=== PATIENT | male | born 1985 | race Caucasian/White ===

== ENCOUNTER 2018-08-25 14:48 | Inpatient (IN) | payer MEDICARE, MEDICAID ==
[~2018-08-25] VITALS: Ht 182.9 cm; Wt 185.9 kg
[~2018-08-25 14:48] MED LIST: AMLO5TAB4 PO; BENZ1TAB10 PO; DIVA500T52 PO; LITH300C3 PO; RISP3 PO
[2018-08-25] MEDS ORDERED: HALOPERIDOL 5 MG TABLET PO PRN (16:15)
[2018-08-25] MEDS ORDERED: ZOLPIDEM TARTRATE 10 MG TABLET PO PRN (16:15)
[2018-08-25] MEDS ORDERED: LORazepam 2 MG TABLET PO PRN (16:15)
[2018-08-25 16:34] VITALS: BP 149/99
[2018-08-25] MEDS ORDERED: PNEUMOCOCCAL VACCINE POLYVALENT 0.5 ML VIAL [PPSV23] IM ONE (19:00)
[2018-08-25] MEDS ORDERED: PETROLATUM,WHITE 28 GM JELLY TP PRN (21:30)
[2018-08-25] MEDS ORDERED: BENZOCAINE/MENTHOL LOZENGE MM PRN (21:30)
[2018-08-25] MEDS ORDERED: ONDANSETRON HCL 4 MG TABLET PO PRN (21:30)
[2018-08-25] MEDS ORDERED: ALBUTEROL SULFATE HFA 90 MCG/PUFF 8 GM INHALER IH PRN (21:30)
[2018-08-25] MEDS ORDERED: CloNIDine HCL 0.1 MG TABLET PO PRN (21:30)
[2018-08-25] MEDS ORDERED: BACITRACIN 28.4 GM OINTMENT TP PRN (21:30)
[2018-08-25] MEDS ORDERED: ACETAMINOPHEN 325 MG TABLET PO PRN (21:30)
[2018-08-25] MEDS ORDERED: LOPERAMIDE HCL 2 MG CAPSULE PO PRN (21:30)
[2018-08-25] MEDS ORDERED: MAG HYDROX/AL HYDROX/SIMETH ES 30 ML SUSPENSION UDCUP PO PRN (21:30)
[2018-08-25] MEDS ORDERED: IBUPROFEN 600 MG TABLET PO PRN (21:30)
[2018-08-25] MEDS ORDERED: MAGNESIUM HYDROXIDE SUSPENSION 30 ML UDCUP PO PRN (21:30)
[2018-08-26 06:14] VITALS: BP 131/86
[2018-08-26 08:07] VITALS: BP 144/96
[2018-08-26 08:26] LABS: BASOPHILS % (AUTO) 0.3 % (0.0-2.0); EOSINOPHILS % (AUTO) 1.9 % (1.0-6.0); HEMOGLOBIN 12.8 g/dL (13.5-17.5); LYMPHOCYTES # (AUTO) 2.2 K/uL (1.0-4.8); LYMPHOCYTES % (AUTO) 24.1 % (22.0-44.0); MEAN CORPUSCULAR HEMOGLOBIN 25.8 pg (26.0-34.0); MEAN CORPUSCULAR HGB CONC 32.1 G/dL (31.0-37.0); MEAN CORPUSCULAR VOLUME 80 fL (80-100); MONOCYTES # (AUTO) 0.5 K/uL (0.1-1.0); NEUTROPHILS % (AUTO) 67.7 % (40.0-70.0); PLATELET COUNT (AUTO) 389 K/uL (150-450); RED BLOOD CELL COUNT(AUTO) 4.97 MIL/uL (4.50-5.90); RED CELL DISTRIBUTION WIDTH 15.3 % (11.5-14.5)
[2018-08-26 08:43] LABS: HEMOGLOBIN A1C 7.4 % (4.5-6.2)
[2018-08-26] MEDS ORDERED: DOCUSATE SODIUM 100 MG CAPSULE PO SCH (09:00)
[2018-08-26] MEDS ORDERED: OMEPRAZOLE 20 MG CAPSULE PO SCH (09:00)
[2018-08-26 09:10] LABS: ALANINE AMINOTRANSFERASE 44 U/L (12-78); ALKALINE PHOSPHATASE 68 U/L (46-116); ANION GAP 7 mmol/L (8-16); ASPARTATE AMINOTRANSFERASE 31 U/L (15-37); BILIRUBIN,TOTAL 0.3 mg/dL (0.1-1.0); CALCIUM, TOTAL 8.6 mg/dL (8.8-10.5); CARBON DIOXIDE 28 mmol/L (22-29); CHLORIDE 101 mmol/L (98-107); CHOL/HDL RATIO 3.2 (4.2-7.3); CHOLESTEROL 146 mg/dL (131-200); CREATININE 0.71 mg/dL (0.60-1.30); FREE T4 (FREE THYROXINE) 1.03 ng/dL (0.76-1.46); GLOMERULAR FILTR. RATE CALC > 60 mL/min (>60); GLUCOSE,RANDOM 141 mg/dL (70-110); HDL CHOLESTEROL 45 mg/dL (40-60); LDL CHOL (CALC.) 87 mg/dL (0-130); POTASSIUM 4.8 mmol/L (3.5-5.1); SODIUM SERUM 136 mmol/L (136-145); THYROID STIMULATING HORMONE 1.09 uIU/mL (0.36-3.74); TOTAL PROTEIN, SERUM 7.2 g/dL (6.4-8.2); TRIGLYCERIDES 72 mg/dL (15-150); UREA NITROGEN, BLOOD 7 mg/dL (7-18)
[2018-08-26] MEDS: DIVALPROEX SODIUM 500 MG DR TABLET PO SCH ×2 (12:27→16:32)
[2018-08-26] MEDS ORDERED: PALIPERIDONE PALMITATE 234 MG/1.5 ML SYRINGE IM SCH (13:00)
[2018-08-26 16:31] VITALS: BP 140/80
[2018-08-26] MEDS: LITHIUM CARBONATE 300 MG CAPSULE PO SCH (16:32)
[2018-08-26] MEDS: QUEtiapine FUMARATE 200 MG TABLET PO SCH (16:32)
[2018-08-26] MEDS: BENZTROPINE MESYLATE 1 MG TABLET PO SCH (16:32)
[2018-08-26 17:09] LABS: GLUCOMETER DEV NAME(LOC) BV2X.; GLUCOSE,POINT OF CARE 116 MG/DL (70-110)
[2018-08-26] MEDS ORDERED: DOCUSATE SODIUM 100 MG CAPSULE PO PRN (21:00)
[2018-08-26] MEDS ORDERED: OMEPRAZOLE 20 MG CAPSULE PO PRN (21:00)
[2018-08-27 00:55] VITALS: BP 122/94
[2018-08-27 08:08] VITALS: BP 124/71
[2018-08-27] MEDS: QUEtiapine FUMARATE 200 MG TABLET PO SCH ×2 (08:31→09:00)
[2018-08-27] MEDS: DIVALPROEX SODIUM 500 MG DR TABLET PO SCH ×3 (08:31→12:03)
[2018-08-27] MEDS: BENZTROPINE MESYLATE 1 MG TABLET PO SCH ×2 (08:31→09:00)
[2018-08-27] MEDS: LITHIUM CARBONATE 300 MG CAPSULE PO SCH ×2 (08:31→09:00)
[2018-08-27 08:53] LABS: % IRON SATURATION 12.6 % (30-44)
[2018-08-27] MEDS ORDERED: QUET200T PO (12:28)
== END 2018-08-27 13:45 | disposition home or self-care (01) | DRG 885 ==
LOC: B2X 16:11
PROVIDERS: ADMIT Psychiatry & Neurology Psychiatry; ATTEND Psychiatry & Neurology Psychiatry
DX: F25.9 Schizoaffective disorder, unspecified (principal); G47.00 Insomnia, unspecified; K59.00 Constipation, unspecified; F41.9 Anxiety disorder, unspecified; F17.200 Nicotine dependence, unspecified, uncomplicated
CPT/HCPCS: 83036; 83540; 83550; 84439; 84443

== ENCOUNTER 2019-11-11 15:44 | Inpatient (IN) | payer MEDICARE, MEDICAID ==
[~2019-11-11] VITALS: Ht 180.3 cm; Wt 166.9 kg
[~2019-11-11 15:44] MED LIST changes: -AMLO5TAB4 PO; +DIVA-80 PO; -DIVA500T52 PO; +QUET200T PO; -RISP3 PO
[2019-11-11 22:57] VITALS: BP 142/103
[2019-11-12 00:13] VITALS: BP 133/84
[2019-11-12 08:16] LABS: BASOPHILS % (AUTO) 0.4 % (0.0-2.0); EOSINOPHILS % (AUTO) 0.4 % (1.0-6.0); HEMATOCRIT 42.6 % (41-53); HEMOGLOBIN 14.5 g/dL (13.5-17.5); LYMPHOCYTES # (AUTO) 2.5 K/uL (1.0-4.8); LYMPHOCYTES % (AUTO) 24.9 % (22.0-44.0); MEAN CORPUSCULAR HEMOGLOBIN 27.1 pg (26.0-34.0); MEAN CORPUSCULAR HGB CONC 34.1 G/dL (31.0-37.0); MEAN CORPUSCULAR VOLUME 79 fL (80-100); MONOCYTES # (AUTO) 0.8 K/uL (0.1-1.0); MONOCYTES % (AUTO) 8.3 % (2.0-9.0); NEUTROPHILS # (AUTO) 6.7 K/uL (1.8-7.7); PLATELET COUNT (AUTO) 414 K/uL (150-450); RED BLOOD CELL COUNT(AUTO) 5.37 MIL/uL (4.50-5.90); RED CELL DISTRIBUTION WIDTH 15.3 % (11.5-14.5)
[2019-11-12 08:31] LABS: APPEARANCE,URINE TURBID (CLEAR); GLUCOSE, URINE (UA) NEGATIVE (NEGATIVE); KETONES,URINE TRACE mg/dL (NEGATIVE); NITRATE,URINE POSITIVE (NEGATIVE); PROTEIN,URINE POS 1+ (NEGATIVE)
[2019-11-12 08:33] LABS: HEMOGLOBIN A1C 6.4 % (3.8-5.6)
[2019-11-12 08:37] LABS: AMPHET/METH SCREEN,URINE NEGATIVE (NEGATIVE); BARBITURATE SCREEN, URINE NEGATIVE (NEGATIVE); BENZODIAZEPINES SCREEN,URINE NEGATIVE (NEGATIVE); CANNABINOID SCREEN,URINE POSITIVE (NEGATIVE); COCAINE SCREEN,URINE NEGATIVE (NEGATIVE); METHADONE SCREEN, URINE NEGATIVE (NEGATIVE); OPIATE SCREEN,URINE NEGATIVE (NEGATIVE)
[2019-11-12 08:39] LABS: PHENCYCLIDINE SCREEN,URINE NEGATIVE (NEGATIVE)
[2019-11-12 08:44] LABS: ALANINE AMINOTRANSFERASE 91 U/L (12-78); ALBUMIN 4.1 g/dL (3.4-5.0); ALKALINE PHOSPHATASE 62 U/L (46-116); ANION GAP 14 mmol/L (8-16); ASPARTATE AMINOTRANSFERASE 61 U/L (15-37); BILIRUBIN,TOTAL 0.7 mg/dL (0.1-1.0); CALCIUM, TOTAL 8.7 mg/dL (8.8-10.5); CARBON DIOXIDE 25 mmol/L (22-29); CHLORIDE 99 mmol/L (98-107); CHOLESTEROL 147 mg/dL (131-200); CREATININE 0.86 mg/dL (0.60-1.30); FREE T4 (FREE THYROXINE) 1.31 ng/dL (0.76-1.46); GLOMERULAR FILTR. RATE CALC > 60 mL/min (>60); GLUCOSE,RANDOM 126 mg/dL (70-110); HDL CHOLESTEROL 37 mg/dL (40-60); LDL CHOL (CALC.) 92 mg/dL (0-130); SODIUM SERUM 138 mmol/L (136-145); THYROID STIMULATING HORMONE 0.65 uIU/mL (0.36-3.74); TOTAL PROTEIN, SERUM 7.9 g/dL (6.4-8.2); TRIGLYCERIDES 92 mg/dL (15-150); UREA NITROGEN, BLOOD 10 mg/dL (7-18)
[2019-11-12] MEDS ORDERED: ONDANSETRON HCL 4 MG TABLET PO PRN (08:45)
[2019-11-12] MEDS ORDERED: IBUPROFEN 600 MG TABLET PO PRN (08:45)
[2019-11-12] MEDS ORDERED: MAG HYDROX/AL HYDROX/SIMETH ES 30 ML SUSPENSION UDCUP PO PRN (08:45)
[2019-11-12] MEDS ORDERED: PETROLATUM,WHITE 28 GM JELLY TP PRN (08:45)
[2019-11-12] MEDS ORDERED: BACITRACIN 28 GM OINTMENT TP PRN (08:45)
[2019-11-12] MEDS ORDERED: DOCUSATE SODIUM 100 MG CAPSULE PO PRN (08:45)
[2019-11-12] MEDS ORDERED: CloNIDine HCL 0.1 MG TABLET PO PRN (08:45)
[2019-11-12] MEDS ORDERED: INSULIN LISPRO 100 UNITS/ML SQ PRN (08:45)
[2019-11-12] MEDS ORDERED: GLUCAGON,HUMAN RECOMBINANT 1 MG VIAL IM PRN (08:45)
[2019-11-12] MEDS ORDERED: ACETAMINOPHEN 325 MG TABLET PO PRN (08:45)
[2019-11-12] MEDS ORDERED: LOPERAMIDE HCL 2 MG CAPSULE PO PRN (08:45)
[2019-11-12] MEDS ORDERED: BENZOCAINE/MENTHOL LOZENGE PO PRN (08:45)
[2019-11-12] MEDS ORDERED: OMEPRAZOLE 20 MG CAPSULE PO PRN (08:45)
[2019-11-12] MEDS ORDERED: MAGNESIUM HYDROXIDE SUSPENSION 30 ML UDCUP PO PRN (08:45)
[2019-11-12] MEDS ORDERED: ALBUTEROL SULFATE HFA 90 MCG/PUFF 8 GM INHALER IH PRN (08:45)
[2019-11-12 09:00] VITALS: BP 160/97
[2019-11-12] MEDS: LORazepam 2 MG TABLET PO PRN ×3 (09:12→18:06)
[2019-11-12 10:29] LABS: AMORPHOUS SEDIMENT,UR Many /LPF (None Seen); BACTERIA,URINE None Seen /HPF (None Seen); BILIRUBIN,URINE PRELIM. POSITIVE (NEGATIVE); LEUKOCYTE ESTERASE ,URINE TRACE (NEGATIVE); OCCULT BLOOD,URINE TRACE (NEGATIVE); RBC,URINE 0-2 /HPF (0-2); WBC,URINE 0-2 /HPF (0-5)
[2019-11-12 11:00] VITALS: BP 130/87
[2019-11-12 13:52] LABS: GLUCOMETER DEV NAME(LOC) BV3N.; GLUCOSE,POINT OF CARE 110 MG/DL (70-110)
[2019-11-12] MEDS: HALOPERIDOL 5 MG TABLET PO PRN ×2 (14:06→18:06)
[2019-11-12 16:05] VITALS: BP 139/86
[2019-11-12 17:30] LABS: GLUCOMETER DEV NAME(LOC) BV3N.; GLUCOSE,POINT OF CARE 93 MG/DL (70-110)
[2019-11-12] MEDS: PALIPERIDONE 9 MG ER TABLET PO SCH (21:24)
[2019-11-13 06:47] LABS: GLUCOMETER DEV NAME(LOC) BV3N.; GLUCOSE,POINT OF CARE 131 MG/DL (70-110)
[2019-11-13] MEDS: LORazepam 2 MG TABLET PO PRN ×2 (07:42→17:31)
[2019-11-13] MEDS: HALOPERIDOL 5 MG TABLET PO PRN ×2 (07:42→17:31)
[2019-11-13 08:09] VITALS: BP 138/89
[2019-11-13 11:05] LABS: GLUCOMETER DEV NAME(LOC) BV3N.; GLUCOSE,POINT OF CARE 127 MG/DL (70-110)
[2019-11-13] MEDS ORDERED: LORazepam 2 MG/ML VIAL IM ONE (11:15)
[2019-11-13] MEDS ORDERED: HALOPERIDOL LACTATE 5 MG/ML VIAL IM ONE (11:15)
[2019-11-13] MEDS ORDERED: DiphenhydrAMINE HCL 50 MG/ML VIAL IM ONE (11:15)
[2019-11-13 16:18] VITALS: BP 132/81
[2019-11-13 17:48] LABS: GLUCOMETER DEV NAME(LOC) BV3N.; GLUCOSE,POINT OF CARE 130 MG/DL (70-110)
[2019-11-13] MEDS: ZOLPIDEM TARTRATE 10 MG TABLET PO PRN (20:24)
[2019-11-13] MEDS: PALIPERIDONE 9 MG ER TABLET PO SCH (20:24)
[2019-11-13 20:35] LABS: GLUCOMETER DEV NAME(LOC) BV3N.; GLUCOSE,POINT OF CARE 122 MG/DL (70-110)
[2019-11-14 02:56] VITALS: BP 134/78
[2019-11-14] MEDS: LORazepam 2 MG TABLET PO PRN ×3 (03:01→16:40)
[2019-11-14 06:17] LABS: GLUCOMETER DEV NAME(LOC) BV3N.; GLUCOSE,POINT OF CARE 112 MG/DL (70-110)
[2019-11-14] MEDS: HALOPERIDOL 5 MG TABLET PO PRN ×2 (06:19→16:40)
[2019-11-14 08:06] VITALS: BP 115/85
[2019-11-14 08:20] LABS: APPEARANCE,URINE TURBID (CLEAR); BILIRUBIN,URINE PRELIM. POSITIVE (NEGATIVE); GLUCOSE, URINE (UA) NEGATIVE (NEGATIVE); KETONES,URINE NEGATIVE (NEGATIVE); LEUKOCYTE ESTERASE ,URINE NEGATIVE (NEGATIVE); NITRATE,URINE NEGATIVE (NEGATIVE); OCCULT BLOOD,URINE NEGATIVE (NEGATIVE); PH,URINE 6.5 (5.0-8.0); PROTEIN,URINE TRACE (NEGATIVE)
[2019-11-14] MEDS ORDERED: LORazepam 2 MG/ML VIAL IM ONE (08:30)
[2019-11-14] MEDS ORDERED: HALOPERIDOL LACTATE 5 MG/ML VIAL IM ONE (08:30)
[2019-11-14] MEDS ORDERED: DiphenhydrAMINE HCL 50 MG/ML VIAL IM ONE (08:30)
[2019-11-14 08:45] LABS: BACTERIA,URINE None Seen /HPF (None Seen); RBC,URINE None Seen /HPF (0-2); SQUAMOUS EPITHELIAL CELL,UR Few /LPF (None Seen); WBC,URINE None Seen /HPF (0-5)
[2019-11-14 08:46] LABS: TRIPLE PHOSPHATE CRYSTAL,UR Few /LPF (None Seen)
[2019-11-14 11:05] LABS: GLUCOMETER DEV NAME(LOC) BV3N.; GLUCOSE,POINT OF CARE 125 MG/DL (70-110)
[2019-11-14 16:11] VITALS: BP 130/74
[2019-11-14 16:51] LABS: GLUCOMETER DEV NAME(LOC) BV3N.; GLUCOSE,POINT OF CARE 112 MG/DL (70-110)
[2019-11-14] MEDS: PALIPERIDONE 9 MG ER TABLET PO SCH (20:03)
[2019-11-15 01:20] VITALS: BP 128/80
[2019-11-15] MEDS: ZOLPIDEM TARTRATE 10 MG TABLET PO PRN ×2 (01:24→22:40)
[2019-11-15 05:49] LABS: GLUCOMETER DEV NAME(LOC) BV3N.; GLUCOSE,POINT OF CARE 108 MG/DL (70-110)
[2019-11-15] MEDS: HALOPERIDOL 5 MG TABLET PO PRN ×3 (07:31→15:33)
[2019-11-15] MEDS: LORazepam 2 MG TABLET PO PRN ×3 (07:31→15:33)
[2019-11-15 08:05] VITALS: BP 139/93
[2019-11-15 16:07] VITALS: BP 135/86
[2019-11-15 17:13] LABS: GLUCOMETER DEV NAME(LOC) BV3N.; GLUCOSE,POINT OF CARE 104 MG/DL (70-110)
[2019-11-15 17:13] LABS: GLUCOMETER DEV NAME(LOC) BV3N.; GLUCOSE,POINT OF CARE 113 MG/DL (70-110)
[2019-11-15] MEDS ORDERED: LORazepam 2 MG/ML VIAL ONE (18:18)
[2019-11-15] MEDS ORDERED: DiphenhydrAMINE HCL 50 MG/ML VIAL ONE (18:19)
[2019-11-15] MEDS ORDERED: HALOPERIDOL LACTATE 5 MG/ML VIAL ONE (18:19)
[2019-11-15] MEDS ORDERED: DiphenhydrAMINE HCL 50 MG/ML VIAL IM ONE (18:30)
[2019-11-15] MEDS ORDERED: LORazepam 2 MG/ML VIAL IM ONE (18:30)
[2019-11-15] MEDS ORDERED: HALOPERIDOL LACTATE 5 MG/ML VIAL IM ONE (18:30)
[2019-11-15] MEDS: PALIPERIDONE 9 MG ER TABLET PO SCH (20:04)
[2019-11-16 04:58] VITALS: BP 133/87
[2019-11-16] MEDS: LORazepam 2 MG TABLET PO PRN ×3 (05:46→22:50)
[2019-11-16] MEDS: HALOPERIDOL 5 MG TABLET PO PRN ×2 (05:46→22:50)
[2019-11-16 05:57] LABS: GLUCOMETER DEV NAME(LOC) BV3N.; GLUCOSE,POINT OF CARE 103 MG/DL (70-110)
[2019-11-16 08:12] VITALS: BP 136/84
[2019-11-16 11:48] LABS: GLUCOMETER DEV NAME(LOC) BV3N.; GLUCOSE,POINT OF CARE 104 MG/DL (70-110)
[2019-11-16 16:04] VITALS: BP 120/98
[2019-11-16] MEDS: MetFORMIN HCL 500 MG TABLET PO SCH (16:54)
[2019-11-16 17:01] LABS: GLUCOMETER DEV NAME(LOC) BV3N.; GLUCOSE,POINT OF CARE 110 MG/DL (70-110)
[2019-11-16 20:21] LABS: GLUCOMETER DEV NAME(LOC) BV3N.; GLUCOSE,POINT OF CARE 105 MG/DL (70-110)
[2019-11-16] MEDS: PALIPERIDONE 9 MG ER TABLET PO SCH (20:48)
[2019-11-16] MEDS: ZOLPIDEM TARTRATE 10 MG TABLET PO PRN (20:48)
[2019-11-17 00:09] VITALS: BP 141/89
[2019-11-17] MEDS: LORazepam 2 MG TABLET PO PRN ×2 (05:08→10:15)
[2019-11-17 06:03] LABS: GLUCOMETER DEV NAME(LOC) BV3N.; GLUCOSE,POINT OF CARE 125 MG/DL (70-110)
[2019-11-17] MEDS: MetFORMIN HCL 500 MG TABLET PO SCH ×2 (06:11→16:02)
[2019-11-17 08:14] VITALS: BP 133/79
[2019-11-17] MEDS: HALOPERIDOL 5 MG TABLET PO PRN ×2 (10:15→18:16)
[2019-11-17 11:13] LABS: GLUCOMETER DEV NAME(LOC) BV3N.; GLUCOSE,POINT OF CARE 110 MG/DL (70-110)
[2019-11-17 16:02] VITALS: BP 136/82
[2019-11-17] MEDS: DIVALPROEX SODIUM 500 MG DR TABLET PO SCH (16:02)
[2019-11-17] MEDS: LITHIUM CARBONATE 300 MG CAPSULE PO SCH (16:02)
[2019-11-17 16:24] LABS: GLUCOMETER DEV NAME(LOC) BV3N.; GLUCOSE,POINT OF CARE 115 MG/DL (70-110)
[2019-11-17] MEDS: PALIPERIDONE 9 MG ER TABLET PO SCH (20:12)
[2019-11-17 20:15] VITALS: BP 137/101
[2019-11-17 20:45] LABS: GLUCOMETER DEV NAME(LOC) BV3N.; GLUCOSE,POINT OF CARE 108 MG/DL (70-110)
[2019-11-17] MEDS: ZOLPIDEM TARTRATE 10 MG TABLET PO PRN (20:55)
[2019-11-18 00:58] VITALS: BP 136/80
[2019-11-18] MEDS: LORazepam 2 MG TABLET PO PRN ×2 (01:37→08:21)
[2019-11-18] MEDS: HALOPERIDOL 5 MG TABLET PO PRN (01:37)
[2019-11-18] MEDS: MetFORMIN HCL 500 MG TABLET PO SCH (06:11)
[2019-11-18 06:16] LABS: GLUCOMETER DEV NAME(LOC) BV3N.; GLUCOSE,POINT OF CARE 120 MG/DL (70-110)
[2019-11-18 08:06] VITALS: BP 138/80
[2019-11-18] MEDS: DIVALPROEX SODIUM 500 MG DR TABLET PO SCH (08:21)
[2019-11-18] MEDS: LITHIUM CARBONATE 300 MG CAPSULE PO SCH (08:21)
[2019-11-18] MEDS ORDERED: PALI9TAB15 PO (09:13)
[2019-11-18] MEDS ORDERED: METF-960 PO (09:14)
== END 2019-11-18 09:56 | disposition home or self-care (01) | DRG 885 ==
LOC: B3A 16:40
PROVIDERS: ADMIT Psychiatry & Neurology Psychiatry; ATTEND Psychiatry & Neurology Psychiatry
DX: F20.0 Paranoid schizophrenia (principal); Z68.43 Body mass index [BMI] 50.0-59.9, adult; K59.00 Constipation, unspecified; E11.9 Type 2 diabetes mellitus without complications; E66.9 Obesity, unspecified; F41.9 Anxiety disorder, unspecified; G47.00 Insomnia, unspecified; I10 Essential (primary) hypertension
CPT/HCPCS: 80307; 83036; 84439; 84443; J1200; J1630; J2060

== ENCOUNTER 2019-11-11 18:25 | Emergency (ER) | payer MEDICARE, OTHER ==
[~2019-11-11] VITALS: Ht 180.3 cm; Wt 154.6 kg
[2019-11-11 18:53] LABS: COVID AG,FIA SOURCE NASAL SWAB
[2019-11-11 22:14] VITALS: BP 155/83
== END 2019-11-11 22:15 | disposition home or self-care (01) ==
LOC: EMS 18:26
DX: F20.9 Schizophrenia, unspecified (principal); Z20.828 Contact with and (suspected) exposure to other viral communicable diseases
CPT/HCPCS: 87426

== ENCOUNTER 2019-11-29 02:12 | Inpatient (IN) | payer MEDICARE, MEDICAID ==
[~2019-11-29] VITALS: Ht 180.3 cm; Wt 165.6 kg
[~2019-11-29 02:12] MED LIST changes: -BENZ1TAB10 PO; +METF-960 PO; +PALI9TAB15 PO; -QUET200T PO
[2019-11-29] MEDS ORDERED: PALI39DI IM (02:36)
[2019-11-29 03:26] LABS: ANION GAP 8 mmol/L (8-16); CALCIUM, TOTAL 8.2 mg/dL (8.8-10.5); CARBON DIOXIDE 26 mmol/L (22-29); CHLORIDE 101 mmol/L (98-107); CREATININE 0.77 mg/dL (0.60-1.30); GLOMERULAR FILTR. RATE CALC > 60 mL/min (>60); GLUCOSE,RANDOM 159 mg/dL (70-110); POTASSIUM 4.2 mmol/L (3.5-5.1); SODIUM SERUM 135 mmol/L (136-145); UREA NITROGEN, BLOOD 5 mg/dL (7-18)
[2019-11-29 03:33] LABS: ALANINE AMINOTRANSFERASE 39 U/L (12-78); ALBUMIN 2.9 g/dL (3.4-5.0); ALKALINE PHOSPHATASE 58 U/L (46-116); ASPARTATE AMINOTRANSFERASE 22 U/L (15-37); BILIRUBIN,TOTAL 0.3 mg/dL (0.1-1.0)
[2019-11-29] MEDS ORDERED: LORazepam 2 MG/ML VIAL ONE (03:38)
[2019-11-29] MEDS ORDERED: HALOPERIDOL LACTATE 5 MG/ML VIAL ONE (03:38)
[2019-11-29] MEDS ORDERED: DiphenhydrAMINE HCL 50 MG/ML VIAL ONE (03:38)
[2019-11-29] MEDS ORDERED: LORazepam 2 MG/ML VIAL IM ONE (04:00)
[2019-11-29] MEDS ORDERED: DiphenhydrAMINE HCL 50 MG/ML VIAL IM ONE (04:00)
[2019-11-29] MEDS ORDERED: HALOPERIDOL LACTATE 5 MG/ML VIAL IM ONE (04:00)
[2019-11-29 04:31] LABS: AMPHET/METH SCREEN,URINE NEGATIVE (NEGATIVE); BARBITURATE SCREEN, URINE NEGATIVE (NEGATIVE); BENZODIAZEPINES SCREEN,URINE NEGATIVE (NEGATIVE); CANNABINOID SCREEN,URINE POSITIVE (NEGATIVE); COCAINE SCREEN,URINE NEGATIVE (NEGATIVE); METHADONE SCREEN, URINE NEGATIVE (NEGATIVE); OPIATE SCREEN,URINE NEGATIVE (NEGATIVE); PHENCYCLIDINE SCREEN,URINE NEGATIVE (NEGATIVE)
[2019-11-29 05:04] LABS: BASOPHILS % (AUTO) 0.3 % (0.0-2.0); EOSINOPHILS % (AUTO) 0.8 % (1.0-6.0); HEMATOCRIT 37.3 % (41-53); HEMOGLOBIN 12.5 g/dL (13.5-17.5); LYMPHOCYTES % (AUTO) 12.1 % (22.0-44.0); MEAN CORPUSCULAR HEMOGLOBIN 26.9 pg (26.0-34.0); MEAN CORPUSCULAR HGB CONC 33.5 G/dL (31.0-37.0); MEAN CORPUSCULAR VOLUME 80 fL (80-100); MONOCYTES # (AUTO) 1.5 K/uL (0.1-1.0); MONOCYTES % (AUTO) 9.5 % (2.0-9.0); NEUTROPHILS # (AUTO) 12.6 K/uL (1.8-7.7); NEUTROPHILS % (AUTO) 77.3 % (40.0-70.0); PLATELET COUNT (AUTO) 394 K/uL (150-450); RED BLOOD CELL COUNT(AUTO) 4.65 MIL/uL (4.50-5.90); RED CELL DISTRIBUTION WIDTH 15.3 % (11.5-14.5)
[2019-11-29 05:08] LABS: COVID AG,FIA SOURCE NASOPHARYNGEAL
[2019-11-29 06:20] LABS: APPEARANCE,URINE CLEAR (CLEAR); BILIRUBIN,URINE NEGATIVE (NEGATIVE); GLUCOSE, URINE (UA) NEGATIVE (NEGATIVE); KETONES,URINE NEGATIVE (NEGATIVE); LEUKOCYTE ESTERASE ,URINE NEGATIVE (NEGATIVE); NITRATE,URINE NEGATIVE (NEGATIVE); OCCULT BLOOD,URINE NEGATIVE (NEGATIVE); PROTEIN,URINE NEGATIVE (NEGATIVE); UROBILINOGEN,URINE 0.2 mg/dL (<=1.0)
[2019-11-29 10:01] VITALS: BP 141/89
[2019-11-29 10:14] LABS: GLUCOMETER DEV NAME(LOC) BV3N.; GLUCOSE,POINT OF CARE 137 MG/DL (70-110)
[2019-11-29 16:22] VITALS: BP 136/74
[2019-11-30] MEDS: HALOPERIDOL 5 MG TABLET PO PRN ×3 (05:11→18:29)
[2019-11-30] MEDS: LORazepam 2 MG TABLET PO PRN ×3 (05:11→18:29)
[2019-11-30 05:14] VITALS: BP 118/76
[2019-11-30 08:06] LABS: CHOL/HDL RATIO 3.2 (4.2-7.3)
[2019-11-30 16:05] VITALS: BP 123/75
[2019-11-30] MEDS: ZOLPIDEM TARTRATE 10 MG TABLET PO PRN (22:08)
[2019-12-01 02:23] VITALS: BP 132/82
[2019-12-01] MEDS: LORazepam 2 MG TABLET PO PRN ×4 (02:24→23:57)
[2019-12-01] MEDS: HALOPERIDOL 5 MG TABLET PO PRN ×3 (03:16→19:52)
[2019-12-01] MEDS: DIVALPROEX SODIUM 500 MG DR TABLET PO SCH ×2 (08:17→16:09)
[2019-12-01] MEDS: LITHIUM CARBONATE 300 MG CAPSULE PO SCH ×2 (08:17→16:09)
[2019-12-01 08:34] VITALS: BP 145/78
[2019-12-01 09:20] LABS: BASOPHILS % (AUTO) 0.9 % (0.0-2.0); EOSINOPHILS % (AUTO) 2.4 % (1.0-6.0); HEMATOCRIT 44.1 % (41-53); LYMPHOCYTES # (AUTO) 2.1 K/uL (1.0-4.8); MEAN CORPUSCULAR HEMOGLOBIN 31.9 pg (26.0-34.0); MEAN CORPUSCULAR VOLUME 94 fL (80-100); MONOCYTES # (AUTO) 0.5 K/uL (0.1-1.0); MONOCYTES % (AUTO) 9.5 % (2.0-9.0); NEUTROPHILS # (AUTO) 2.1 K/uL (1.8-7.7); NEUTROPHILS % (AUTO) 44.2 % (40.0-70.0); PLATELET COUNT (AUTO) 269 K/uL (150-450); RED BLOOD CELL COUNT(AUTO) 4.69 MIL/uL (4.50-5.90); RED CELL DISTRIBUTION WIDTH 13.7 % (11.5-14.5)
[2019-12-01 09:42] LABS: ALANINE AMINOTRANSFERASE 97 U/L (12-78); ALBUMIN 3.8 g/dL (3.4-5.0); ALKALINE PHOSPHATASE 105 U/L (46-116); ANION GAP 9 mmol/L (8-16); ASPARTATE AMINOTRANSFERASE 31 U/L (15-37); BILIRUBIN,TOTAL 0.4 mg/dL (0.1-1.0); CALCIUM, TOTAL 9.8 mg/dL (8.8-10.5); CARBON DIOXIDE 30 mmol/L (22-29); CHLORIDE 102 mmol/L (98-107); CREATININE 0.91 mg/dL (0.60-1.30); GLOMERULAR FILTR. RATE CALC > 60 mL/min (>60); GLUCOSE,RANDOM 96 mg/dL (70-110); PHOSPHORUS 3.9 mg/dL (2.5-4.9); POTASSIUM 4.1 mmol/L (3.5-5.1); SODIUM SERUM 141 mmol/L (136-145); TOTAL PROTEIN, SERUM 7.7 g/dL (6.4-8.2); UREA NITROGEN, BLOOD 15 mg/dL (7-18)
[2019-12-01] MEDS ORDERED: GuaiFENesin SR 600 MG ER TABLET PO PRN (10:30)
[2019-12-01 11:05] LABS: GLUCOMETER DEV NAME(LOC) BV3N.; GLUCOSE,POINT OF CARE 119 MG/DL (70-110)
[2019-12-01] MEDS: MetFORMIN HCL 500 MG TABLET PO SCH (16:09)
[2019-12-01 16:52] VITALS: BP 138/89
[2019-12-02 00:07] VITALS: BP 136/79
[2019-12-02 06:25] LABS: GLUCOMETER DEV NAME(LOC) BV3N.; GLUCOSE,POINT OF CARE 125 MG/DL (70-110)
[2019-12-02] MEDS: MetFORMIN HCL 500 MG TABLET PO SCH ×2 (07:04→16:36)
[2019-12-02] MEDS: HALOPERIDOL 5 MG TABLET PO PRN ×3 (07:39→16:36)
[2019-12-02 08:22] VITALS: BP 140/106
[2019-12-02] MEDS: LITHIUM CARBONATE 300 MG CAPSULE PO SCH ×2 (08:26→16:36)
[2019-12-02] MEDS: DIVALPROEX SODIUM 500 MG DR TABLET PO SCH ×2 (08:26→16:37)
[2019-12-02 16:06] VITALS: BP 136/88
[2019-12-02] MEDS: LORazepam 2 MG TABLET PO PRN (16:37)
[2019-12-02 16:48] LABS: GLUCOMETER DEV NAME(LOC) BV3N.; GLUCOSE,POINT OF CARE 112 MG/DL (70-110)
[2019-12-03 02:03] VITALS: BP 124/74
[2019-12-03 05:52] LABS: GLUCOMETER DEV NAME(LOC) BV3N.; GLUCOSE,POINT OF CARE 110 MG/DL (70-110)
[2019-12-03] MEDS: MetFORMIN HCL 500 MG TABLET PO SCH ×2 (06:28→16:33)
[2019-12-03 08:14] VITALS: BP 157/88
[2019-12-03] MEDS: HALOPERIDOL 5 MG TABLET PO PRN (08:15)
[2019-12-03] MEDS: LORazepam 2 MG TABLET PO PRN (08:15)
[2019-12-03] MEDS: LITHIUM CARBONATE 300 MG CAPSULE PO SCH ×2 (08:15→16:34)
[2019-12-03] MEDS: DIVALPROEX SODIUM 500 MG DR TABLET PO SCH ×2 (08:15→16:33)
[2019-12-03 16:06] VITALS: BP 129/68
[2019-12-03 16:38] LABS: GLUCOMETER DEV NAME(LOC) BV3N.; GLUCOSE,POINT OF CARE 115 MG/DL (70-110)
[2019-12-04 00:56] VITALS: BP 110/61
[2019-12-04 06:00] LABS: GLUCOMETER DEV NAME(LOC) BV3N.; GLUCOSE,POINT OF CARE 113 MG/DL (70-110)
[2019-12-04] MEDS: MetFORMIN HCL 500 MG TABLET PO SCH ×2 (06:14→16:39)
[2019-12-04 08:22] VITALS: BP 118/72
[2019-12-04] MEDS: HALOPERIDOL 5 MG TABLET PO PRN ×2 (08:31→16:39)
[2019-12-04] MEDS: LITHIUM CARBONATE 300 MG CAPSULE PO SCH ×2 (08:31→16:39)
[2019-12-04] MEDS: LORazepam 2 MG TABLET PO PRN ×2 (08:31→16:39)
[2019-12-04] MEDS: DIVALPROEX SODIUM 500 MG DR TABLET PO SCH ×2 (08:31→16:39)
[2019-12-04 16:11] VITALS: BP 117/78
[2019-12-04 16:50] LABS: GLUCOMETER DEV NAME(LOC) BV3N.; GLUCOSE,POINT OF CARE 102 MG/DL (70-110)
[2019-12-05] MEDS: ZOLPIDEM TARTRATE 10 MG TABLET PO PRN (02:12)
[2019-12-05] MEDS: LORazepam 2 MG TABLET PO PRN ×2 (02:12→16:18)
[2019-12-05 05:41] VITALS: BP 114/72
[2019-12-05 06:19] LABS: GLUCOMETER DEV NAME(LOC) BV3N.; GLUCOSE,POINT OF CARE 147 MG/DL (70-110)
[2019-12-05] MEDS: MetFORMIN HCL 500 MG TABLET PO SCH ×2 (06:41→16:18)
[2019-12-05 08:10] VITALS: BP 121/66
[2019-12-05] MEDS: LITHIUM CARBONATE 300 MG CAPSULE PO SCH ×2 (08:55→16:18)
[2019-12-05] MEDS: DIVALPROEX SODIUM 500 MG DR TABLET PO SCH ×2 (08:55→16:18)
[2019-12-05] MEDS: MULTIVITAMINS WITH MINERALS, THERAPEUTIC TABLET PO SCH (09:58)
[2019-12-05 16:06] VITALS: BP 116/69
[2019-12-05 16:46] LABS: GLUCOMETER DEV NAME(LOC) BV3N.; GLUCOSE,POINT OF CARE 103 MG/DL (70-110)
[2019-12-06 05:21] VITALS: BP 113/72
[2019-12-06 06:23] LABS: GLUCOMETER DEV NAME(LOC) BV3N.; GLUCOSE,POINT OF CARE 121 MG/DL (70-110)
[2019-12-06] MEDS: MetFORMIN HCL 500 MG TABLET PO SCH ×2 (06:49→16:11)
[2019-12-06] MEDS: LORazepam 2 MG TABLET PO PRN ×2 (07:02→16:11)
[2019-12-06] MEDS: HALOPERIDOL 5 MG TABLET PO PRN ×2 (07:02→16:11)
[2019-12-06 08:26] VITALS: BP 139/87
[2019-12-06] MEDS: MULTIVITAMINS WITH MINERALS, THERAPEUTIC TABLET PO SCH (09:53)
[2019-12-06] MEDS: LITHIUM CARBONATE 300 MG CAPSULE PO SCH ×2 (09:53→16:11)
[2019-12-06] MEDS: DIVALPROEX SODIUM 500 MG DR TABLET PO SCH ×2 (09:54→16:11)
[2019-12-06 16:11] VITALS: BP 130/68
[2019-12-06 16:33] LABS: GLUCOMETER DEV NAME(LOC) BV3N.; GLUCOSE,POINT OF CARE 90 MG/DL (70-110)
[2019-12-07 05:17] VITALS: BP 126/74
[2019-12-07 06:12] LABS: GLUCOMETER DEV NAME(LOC) BV3N.; GLUCOSE,POINT OF CARE 116 MG/DL (70-110)
[2019-12-07] MEDS: HALOPERIDOL 5 MG TABLET PO PRN ×4 (06:43→20:32)
[2019-12-07] MEDS: LORazepam 2 MG TABLET PO PRN ×4 (06:43→20:32)
[2019-12-07] MEDS: MetFORMIN HCL 500 MG TABLET PO SCH ×2 (06:43→16:31)
[2019-12-07 08:03] VITALS: BP 113/67
[2019-12-07] MEDS: DIVALPROEX SODIUM 500 MG DR TABLET PO SCH ×2 (08:29→16:31)
[2019-12-07] MEDS: LITHIUM CARBONATE 300 MG CAPSULE PO SCH ×2 (08:29→16:31)
[2019-12-07] MEDS: MULTIVITAMINS WITH MINERALS, THERAPEUTIC TABLET PO SCH (08:29)
[2019-12-07 16:04] VITALS: BP 129/73
[2019-12-07 18:34] LABS: GLUCOMETER DEV NAME(LOC) BV3N.; GLUCOSE,POINT OF CARE 122 MG/DL (70-110)
[2019-12-07] MEDS: ZOLPIDEM TARTRATE 10 MG TABLET PO PRN (20:24)
[2019-12-07] MEDS ORDERED: INSULIN LISPRO 100 UNITS/ML SQ PRN (23:00)
[2019-12-07] MEDS ORDERED: GLUCAGON,HUMAN RECOMBINANT 1 MG VIAL IM PRN (23:00)
[2019-12-08 04:10] VITALS: BP 111/77
[2019-12-08] MEDS: HALOPERIDOL 5 MG TABLET PO PRN ×4 (04:17→20:24)
[2019-12-08] MEDS: LORazepam 2 MG TABLET PO PRN ×4 (04:18→20:24)
[2019-12-08 04:39] VITALS: BP 132/71
[2019-12-08 06:11] LABS: GLUCOMETER DEV NAME(LOC) BV3N.; GLUCOSE,POINT OF CARE 156 MG/DL (70-110)
[2019-12-08] MEDS: MetFORMIN HCL 500 MG TABLET PO SCH ×2 (06:34→16:22)
[2019-12-08 08:21] VITALS: BP 159/86
[2019-12-08] MEDS: MULTIVITAMINS WITH MINERALS, THERAPEUTIC TABLET PO SCH (08:26)
[2019-12-08] MEDS: LITHIUM CARBONATE 300 MG CAPSULE PO SCH ×2 (08:26→16:22)
[2019-12-08] MEDS: DIVALPROEX SODIUM 500 MG DR TABLET PO SCH ×2 (08:26→16:22)
[2019-12-08 11:51] LABS: GLUCOMETER DEV NAME(LOC) BV3N.; GLUCOSE,POINT OF CARE 98 MG/DL (70-110)
[2019-12-08 16:35] VITALS: BP 128/82
[2019-12-08 16:36] LABS: GLUCOMETER DEV NAME(LOC) BV3N.; GLUCOSE,POINT OF CARE 88 MG/DL (70-110)
[2019-12-08] MEDS: ZOLPIDEM TARTRATE 10 MG TABLET PO PRN (20:24)
[2019-12-08 20:42] LABS: GLUCOMETER DEV NAME(LOC) BV3N.; GLUCOSE,POINT OF CARE 95 MG/DL (70-110)
[2019-12-09 03:27] VITALS: BP 126/74
[2019-12-09 05:34] LABS: GLUCOMETER DEV NAME(LOC) BV3N.; GLUCOSE,POINT OF CARE 90 MG/DL (70-110)
[2019-12-09] MEDS: MetFORMIN HCL 500 MG TABLET PO SCH ×2 (06:44→16:47)
[2019-12-09 08:05] VITALS: BP 134/80
[2019-12-09] MEDS: DIVALPROEX SODIUM 500 MG DR TABLET PO SCH ×2 (08:21→16:46)
[2019-12-09] MEDS: MULTIVITAMINS WITH MINERALS, THERAPEUTIC TABLET PO SCH (08:21)
[2019-12-09] MEDS: LITHIUM CARBONATE 300 MG CAPSULE PO SCH ×2 (08:21→16:47)
[2019-12-09] MEDS: HALOPERIDOL 5 MG TABLET PO PRN ×3 (08:28→20:55)
[2019-12-09] MEDS: LORazepam 2 MG TABLET PO PRN ×3 (08:28→20:54)
[2019-12-09 14:25] LABS: GLUCOMETER DEV NAME(LOC) BV3N.; GLUCOSE,POINT OF CARE 109 MG/DL (70-110)
[2019-12-09 16:32] VITALS: BP 129/78
[2019-12-09 17:09] LABS: GLUCOMETER DEV NAME(LOC) BV3N.; GLUCOSE,POINT OF CARE 119 MG/DL (70-110)
[2019-12-09] MEDS: ZOLPIDEM TARTRATE 10 MG TABLET PO PRN (20:54)
[2019-12-09 20:57] LABS: GLUCOMETER DEV NAME(LOC) BV3N.; GLUCOSE,POINT OF CARE 87 MG/DL (70-110)
[2019-12-10] MEDS: LORazepam 2 MG TABLET PO PRN ×4 (01:15→20:38)
[2019-12-10 01:58] VITALS: BP 128/82
[2019-12-10 06:16] LABS: GLUCOMETER DEV NAME(LOC) BV3N.; GLUCOSE,POINT OF CARE 93 MG/DL (70-110)
[2019-12-10] MEDS: MetFORMIN HCL 500 MG TABLET PO SCH ×2 (06:23→16:36)
[2019-12-10 08:07] VITALS: BP 146/90
[2019-12-10] MEDS: DIVALPROEX SODIUM 500 MG DR TABLET PO SCH ×2 (08:27→16:37)
[2019-12-10] MEDS: MULTIVITAMINS WITH MINERALS, THERAPEUTIC TABLET PO SCH (08:27)
[2019-12-10] MEDS: LITHIUM CARBONATE 300 MG CAPSULE PO SCH ×2 (08:27→16:37)
[2019-12-10] MEDS: HALOPERIDOL 5 MG TABLET PO PRN ×3 (09:05→20:38)
[2019-12-10 16:11] VITALS: BP 137/74
[2019-12-10 17:12] LABS: GLUCOMETER DEV NAME(LOC) BV3N.; GLUCOSE,POINT OF CARE 99 MG/DL (70-110)
[2019-12-10] MEDS: ZOLPIDEM TARTRATE 10 MG TABLET PO PRN (20:38)
[2019-12-10 20:47] LABS: GLUCOMETER DEV NAME(LOC) BV3N.; GLUCOSE,POINT OF CARE 88 MG/DL (70-110)
[2019-12-11 00:26] VITALS: BP 130/86
[2019-12-11] MEDS: LORazepam 2 MG TABLET PO PRN (01:32)
[2019-12-11 06:14] LABS: GLUCOMETER DEV NAME(LOC) BV3N.; GLUCOSE,POINT OF CARE 102 MG/DL (70-110)
[2019-12-11] MEDS: MetFORMIN HCL 500 MG TABLET PO SCH (06:22)
[2019-12-11] MEDS ORDERED: METF-960 PO (08:12)
[2019-12-11] MEDS ORDERED: DIVA-112 PO (08:12)
[2019-12-11] MEDS ORDERED: DIVA-80 PO (08:15)
[2019-12-11] MEDS: MULTIVITAMINS WITH MINERALS, THERAPEUTIC TABLET PO SCH (08:33)
[2019-12-11] MEDS: LITHIUM CARBONATE 300 MG CAPSULE PO SCH (08:33)
[2019-12-11] MEDS: DIVALPROEX SODIUM 500 MG DR TABLET PO SCH (08:33)
[2019-12-11 09:03] VITALS: BP 153/98
[2019-12-11] MEDS ORDERED: PALIPERIDONE PALMITATE 234 MG/1.5 ML SYRINGE IM SCH (11:00)
[2019-12-11 11:14] LABS: GLUCOMETER DEV NAME(LOC) BV3N.; GLUCOSE,POINT OF CARE 123 MG/DL (70-110)
== END 2019-12-11 17:20 | disposition home or self-care (01) | DRG 885 ==
LOC: EMS 02:12 → B3A 08:09
PROVIDERS: ADMIT Psychiatry & Neurology Psychiatry; ATTEND Psychiatry & Neurology Psychiatry
DX: F20.9 Schizophrenia, unspecified (principal); Z68.43 Body mass index [BMI] 50.0-59.9, adult; I10 Essential (primary) hypertension; J45.909 Unspecified asthma, uncomplicated; F17.210 Nicotine dependence, cigarettes, uncomplicated; E66.9 Obesity, unspecified; F41.8 Other specified anxiety disorders; G47.00 Insomnia, unspecified; K59.00 Constipation, unspecified; E11.9 Type 2 diabetes mellitus without complications; Z79.899 Other long term (current) drug therapy; Z79.84 Long term (current) use of oral hypoglycemic drugs; Z03.818 Encounter for observation for suspected exposure to other biological agents ruled out
CPT/HCPCS: 83735; 84100; 87081; 87426; 99291; G0480; J1200; J1630; J2060

== ENCOUNTER 2020-03-31 13:19 | Inpatient (IN) | payer MEDICARE, MEDICAID ==
[~2020-03-31] VITALS: Ht 182.9 cm; Wt 139.0 kg
[~2020-03-31 13:19] MED LIST changes: -PALI9TAB15 PO
[2020-03-31] MEDS ORDERED: PALI39DI IM (14:59)
[2020-03-31] MEDS ORDERED: PALI273S INJ (14:59)
[2020-03-31] MEDS ORDERED: TRAZ-184 PO (14:59)
[2020-03-31 16:16] LABS: AMPHET/METH SCREEN,URINE NEGATIVE (NEGATIVE); BARBITURATE SCREEN, URINE NEGATIVE (NEGATIVE); BENZODIAZEPINES SCREEN,URINE NEGATIVE (NEGATIVE); CANNABINOID SCREEN,URINE POSITIVE (NEGATIVE); COCAINE SCREEN,URINE NEGATIVE (NEGATIVE); METHADONE SCREEN, URINE NEGATIVE (NEGATIVE); OPIATE SCREEN,URINE NEGATIVE (NEGATIVE); PHENCYCLIDINE SCREEN,URINE NEGATIVE (NEGATIVE)
[2020-03-31 16:59] LABS: COVID AG,FIA SOURCE NASOPHARYNGEAL
[2020-03-31 17:05] LABS: BASOPHILS % (AUTO) 0.3 % (0.0-2.0); EOSINOPHILS % (AUTO) 0.6 % (1.0-6.0); HEMATOCRIT 38.1 % (41-53); HEMOGLOBIN 12.5 g/dL (13.5-17.5); LYMPHOCYTES # (AUTO) 2.6 K/uL (1.0-4.8); LYMPHOCYTES % (AUTO) 29.3 % (22.0-44.0); MEAN CORPUSCULAR HEMOGLOBIN 27.3 pg (26.0-34.0); MEAN CORPUSCULAR HGB CONC 32.9 G/dL (31.0-37.0); MEAN CORPUSCULAR VOLUME 83 fL (80-100); MONOCYTES # (AUTO) 0.6 K/uL (0.1-1.0); MONOCYTES % (AUTO) 7.3 % (2.0-9.0); NEUTROPHILS # (AUTO) 5.5 K/uL (1.8-7.7); NEUTROPHILS % (AUTO) 62.5 % (40.0-70.0); PLATELET COUNT (AUTO) 363 K/uL (150-450); RED BLOOD CELL COUNT(AUTO) 4.59 MIL/uL (4.50-5.90); RED CELL DISTRIBUTION WIDTH 15.5 % (11.5-14.5)
[2020-03-31 17:17] LABS: LITHIUM < 0.20 mmol/L (0.60-1.20)
[2020-03-31 17:22] LABS: ANION GAP 9 mmol/L (8-16); CALCIUM, TOTAL 8.8 mg/dL (8.8-10.5); CARBON DIOXIDE 26 mmol/L (22-29); CHLORIDE 103 mmol/L (98-107); CREATININE 0.74 mg/dL (0.60-1.30); GLOMERULAR FILTR. RATE CALC > 60 mL/min (>60); GLUCOSE,RANDOM 92 mg/dL (70-110); POTASSIUM 3.7 mmol/L (3.5-5.1); SODIUM SERUM 138 mmol/L (136-145); UREA NITROGEN, BLOOD 5 mg/dL (7-18)
[2020-03-31 17:33] LABS: ALANINE AMINOTRANSFERASE 20 U/L (12-78); ALBUMIN 3.4 g/dL (3.4-5.0); ALKALINE PHOSPHATASE 47 U/L (46-116); ASPARTATE AMINOTRANSFERASE 11 U/L (15-37); BILIRUBIN,TOTAL 0.3 mg/dL (0.1-1.0); TOTAL PROTEIN, SERUM 7.9 g/dL (6.4-8.2); VALPROIC ACID 10 mcg/mL (50-100)
[2020-03-31] MEDS ORDERED: ZOLPIDEM TARTRATE 10 MG TABLET PO PRN (22:15)
[2020-04-01] MEDS ORDERED: INFLUENZA VIRUS VACCINE QVS 2020-21 (6MO+)/PF 60 MCG/0.5 ML SYRINGE IM ONE (03:30)
[2020-04-01 03:34] VITALS: BP 126/76
[2020-04-01] MEDS ORDERED: GuaiFENesin/D-METHORPHAN [SUGAR-FREE] 200-20MG/10 ML SYRUP UDCUP PO PRN (07:15)
[2020-04-01] MEDS ORDERED: DOCUSATE SODIUM 100 MG CAPSULE PO PRN (07:15)
[2020-04-01] MEDS ORDERED: ACETAMINOPHEN 325 MG TABLET PO PRN (07:15)
[2020-04-01] MEDS ORDERED: MAGNESIUM HYDROXIDE SUSPENSION 30 ML UDCUP PO PRN (07:15)
[2020-04-01] MEDS ORDERED: PETROLATUM,WHITE 28 GM JELLY TP PRN (07:15)
[2020-04-01] MEDS ORDERED: IBUPROFEN 400 MG TABLET PO PRN (07:15)
[2020-04-01] MEDS ORDERED: CloNIDine HCL 0.1 MG TABLET PO PRN (07:15)
[2020-04-01] MEDS ORDERED: NICOTINE 14 MG/24 HOUR PATCH TD PRN (07:15)
[2020-04-01] MEDS ORDERED: ONDANSETRON HCL 4 MG TABLET PO PRN (07:15)
[2020-04-01] MEDS ORDERED: MAG HYDROX/AL HYDROX/SIMETH ES 30 ML SUSPENSION UDCUP PO PRN (07:15)
[2020-04-01] MEDS ORDERED: ALBUTEROL SULFATE HFA 90 MCG/PUFF 8 GM INHALER IH PRN (07:15)
[2020-04-01] MEDS ORDERED: LOPERAMIDE HCL 2 MG CAPSULE PO PRN (07:15)
[2020-04-01 08:49] VITALS: BP 112/64
[2020-04-01 08:50] LABS: CHOL/HDL RATIO 2.4 (4.2-7.3)
[2020-04-01] MEDS ORDERED: TRAZ-257 PO (13:02)
[2020-04-01] MEDS ORDERED: PALI234D IM (13:02)
[2020-04-01] MEDS: MetFORMIN HCL 500 MG TABLET PO SCH (16:24)
[2020-04-01] MEDS: DIVALPROEX SODIUM 500 MG ER TABLET PO SCH (16:24)
[2020-04-01] MEDS: LITHIUM CARBONATE 300 MG CAPSULE PO SCH (16:24)
[2020-04-01 16:47] VITALS: BP 131/83
[2020-04-01] MEDS: HALOPERIDOL 5 MG TABLET PO PRN (17:33)
[2020-04-01] MEDS: LORazepam 2 MG TABLET PO PRN (17:33)
[2020-04-01] MEDS: TraZODone HCL 50 MG TABLET PO SCH (20:31)
[2020-04-01] MEDS ORDERED: PALIPERIDONE PALMITATE 234 MG/1.5 ML SYRINGE IM SCH (21:00)
[2020-04-02 05:22] VITALS: BP 118/64
[2020-04-02] MEDS: LORazepam 2 MG TABLET PO PRN ×3 (05:42→18:57)
[2020-04-02] MEDS: HALOPERIDOL 5 MG TABLET PO PRN ×3 (05:42→18:57)
[2020-04-02] MEDS: MetFORMIN HCL 500 MG TABLET PO SCH ×2 (06:16→16:59)
[2020-04-02] MEDS: LITHIUM CARBONATE 300 MG CAPSULE PO SCH ×2 (06:18→16:59)
[2020-04-02] MEDS: DIVALPROEX SODIUM 500 MG ER TABLET PO SCH ×2 (08:53→16:58)
[2020-04-02 09:15] VITALS: BP 125/73
[2020-04-02 16:23] VITALS: BP 136/80
[2020-04-02] MEDS: TraZODone HCL 50 MG TABLET PO SCH (21:31)
[2020-04-03] MEDS: LORazepam 2 MG TABLET PO PRN ×2 (04:03→09:02)
[2020-04-03] MEDS: HALOPERIDOL 5 MG TABLET PO PRN ×2 (04:03→09:02)
[2020-04-03 04:34] VITALS: BP 142/84
[2020-04-03] MEDS: LITHIUM CARBONATE 300 MG CAPSULE PO SCH (06:33)
[2020-04-03] MEDS: MetFORMIN HCL 500 MG TABLET PO SCH (06:33)
[2020-04-03 08:44] VITALS: BP 132/82
[2020-04-03] MEDS: DIVALPROEX SODIUM 500 MG ER TABLET PO SCH (09:02)
[2020-04-03] MEDS ORDERED: TRAZ-252 PO (11:28)
[2020-04-29] MEDS ORDERED: PALIPERIDONE PALMITATE 234 MG/1.5 ML SYRINGE IM SCH (09:00)
== END 2020-04-03 12:50 | disposition home or self-care (01) | DRG 885 ==
LOC: EMS 13:25 → B3A 22:11
PROVIDERS: ADMIT Psychiatry & Neurology Child & Adolescent Psychiatry; ATTEND Psychiatry & Neurology Child & Adolescent Psychiatry
DX: F20.0 Paranoid schizophrenia (principal); Z68.41 Body mass index [BMI] 40.0-44.9, adult; Z91.14 Patient's other noncompliance with medication regimen; F12.90 Cannabis use, unspecified, uncomplicated; F41.9 Anxiety disorder, unspecified; E11.9 Type 2 diabetes mellitus without complications; D64.9 Anemia, unspecified; J45.909 Unspecified asthma, uncomplicated; I10 Essential (primary) hypertension; E78.5 Hyperlipidemia, unspecified; E66.9 Obesity, unspecified; F31.9 Bipolar disorder, unspecified; F17.210 Nicotine dependence, cigarettes, uncomplicated; Z20.822 Contact with and (suspected) exposure to COVID-19; Z28.21 Immunization not carried out because of patient refusal; F14.90 Cocaine use, unspecified, uncomplicated
CPT/HCPCS: 87426; 90686; 99285; G0480

== ENCOUNTER 2020-04-18 20:13 | Emergency (ER) | payer MEDICARE, OTHER ==
[~2020-04-18] VITALS: Ht 180.3 cm; Wt 140.9 kg
[~2020-04-18 20:13] MED LIST changes: +TRAZ-252 PO
[2020-04-18 20:34] VITALS: BP 137/89
[2020-04-18 20:48] LABS: GLUCOSE,POINT OF CARE 87 MG/DL (70-110)
[2020-04-18 21:05] LABS: BASOPHILS % (AUTO) 0.3 % (0.0-2.0); EOSINOPHILS % (AUTO) 0.5 % (1.0-6.0); HEMATOCRIT 41.5 % (41-53); HEMOGLOBIN 13.7 g/dL (13.5-17.5); MEAN CORPUSCULAR HEMOGLOBIN 27.6 pg (26.0-34.0); MEAN CORPUSCULAR HGB CONC 32.9 G/dL (31.0-37.0); MEAN CORPUSCULAR VOLUME 84 fL (80-100); MONOCYTES # (AUTO) 0.5 K/uL (0.1-1.0); MONOCYTES % (AUTO) 5.8 % (2.0-9.0); NEUTROPHILS # (AUTO) 6.6 K/uL (1.8-7.7); NEUTROPHILS % (AUTO) 71.4 % (40.0-70.0); PLATELET COUNT (AUTO) 450 K/uL (150-450); RED BLOOD CELL COUNT(AUTO) 4.95 MIL/uL (4.50-5.90); RED CELL DISTRIBUTION WIDTH 15.1 % (11.5-14.5)
[2020-04-18 21:14] LABS: ANION GAP 9 mmol/L (8-16); CALCIUM, TOTAL 8.8 mg/dL (8.8-10.5); CARBON DIOXIDE 28 mmol/L (22-29); CHLORIDE 102 mmol/L (98-107); GLOMERULAR FILTR. RATE CALC > 60 mL/min (>60); GLUCOSE,RANDOM 91 mg/dL (70-110); POTASSIUM 3.8 mmol/L (3.5-5.1); SODIUM SERUM 139 mmol/L (136-145); UREA NITROGEN, BLOOD 10 mg/dL (7-18)
[2020-04-18 21:16] LABS: AMPHET/METH SCREEN,URINE NEGATIVE (NEGATIVE); BARBITURATE SCREEN, URINE NEGATIVE (NEGATIVE); BENZODIAZEPINES SCREEN,URINE NEGATIVE (NEGATIVE); CANNABINOID SCREEN,URINE POSITIVE (NEGATIVE); COCAINE SCREEN,URINE NEGATIVE (NEGATIVE); METHADONE SCREEN, URINE NEGATIVE (NEGATIVE); OPIATE SCREEN,URINE NEGATIVE (NEGATIVE); PHENCYCLIDINE SCREEN,URINE NEGATIVE (NEGATIVE)
[2020-04-18 21:20] LABS: ALANINE AMINOTRANSFERASE 22 U/L (12-78); ALBUMIN 3.6 g/dL (3.4-5.0); ALKALINE PHOSPHATASE 47 U/L (46-116); ASPARTATE AMINOTRANSFERASE 13 U/L (15-37); BILIRUBIN,TOTAL 0.3 mg/dL (0.1-1.0); TOTAL PROTEIN, SERUM 8.1 g/dL (6.4-8.2)
== END 2020-04-18 22:52 | disposition home or self-care (01) ==
LOC: EMS 20:13
DX: F20.0 Paranoid schizophrenia (principal); F31.9 Bipolar disorder, unspecified; F41.9 Anxiety disorder, unspecified; E11.9 Type 2 diabetes mellitus without complications; I10 Essential (primary) hypertension; J45.909 Unspecified asthma, uncomplicated; F12.90 Cannabis use, unspecified, uncomplicated; F14.90 Cocaine use, unspecified, uncomplicated; F17.210 Nicotine dependence, cigarettes, uncomplicated; Z79.84 Long term (current) use of oral hypoglycemic drugs; Z79.899 Other long term (current) drug therapy
CPT/HCPCS: 36415; 80053; 80307; 82962; 85025; 99284; G0480

== ENCOUNTER 2022-01-19 20:12 | Emergency (ER) | payer OTHER ==
[~2022-01-19] VITALS: Ht 180.3 cm; Wt 161.4 kg
[~2022-01-19 20:12] MED LIST changes: +METF-1211 PO; -METF-960 PO
[2022-01-19] MEDS ORDERED: HALOPERIDOL LACTATE 5 MG/ML VIAL IM ONE (21:45)
[2022-01-19] MEDS ORDERED: DiphenhydrAMINE HCL 50 MG/ML VIAL IM ONE (21:45)
[2022-01-19] MEDS ORDERED: LORazepam 2 MG/ML VIAL IM ONE (21:45)
[2022-01-19 21:50] LABS: BASOPHILS % (AUTO) 0.6 % (0.0-2.0); EOSINOPHILS % (AUTO) 2.4 % (1.0-6.0); HEMATOCRIT 40.2 % (41-53); HEMOGLOBIN 13.6 g/dL (13.5-17.5); LYMPHOCYTES % (AUTO) 20.6 % (22.0-44.0); MEAN CORPUSCULAR HEMOGLOBIN 27.7 pg (26.0-34.0); MEAN CORPUSCULAR HGB CONC 33.9 G/dL (31.0-37.0); MEAN CORPUSCULAR VOLUME 82 fL (80-100); MONOCYTES # (AUTO) 0.7 K/uL (0.1-1.0); MONOCYTES % (AUTO) 7.6 % (2.0-9.0); NEUTROPHILS # (AUTO) 6.7 K/uL (1.8-7.7); NEUTROPHILS % (AUTO) 68.8 % (40.0-70.0); PLATELET COUNT (AUTO) 374 K/uL (150-450); RED BLOOD CELL COUNT(AUTO) 4.92 MIL/uL (4.50-5.90); RED CELL DISTRIBUTION WIDTH 14.8 % (11.5-14.5)
[2022-01-19 21:59] LABS: ANION GAP 6 mmol/L (8-16); CALCIUM, TOTAL 8.7 mg/dL (8.8-10.5); CARBON DIOXIDE 30 mmol/L (22-29); CHLORIDE 99 mmol/L (98-107); CREATININE 0.81 mg/dL (0.60-1.30); GLOMERULAR FILTR. RATE CALC > 60 mL/min (>60); GLUCOSE,RANDOM 109 mg/dL (70-110); SODIUM SERUM 135 mmol/L (136-145); UREA NITROGEN, BLOOD 5 mg/dL (7-18)
[2022-01-19 21:59] LABS: AMPHET/METH SCREEN,URINE NEGATIVE (NEGATIVE); BARBITURATE SCREEN, URINE NEGATIVE (NEGATIVE); BENZODIAZEPINES SCREEN,URINE NEGATIVE (NEGATIVE); CANNABINOID SCREEN,URINE POSITIVE (NEGATIVE); COCAINE SCREEN,URINE NEGATIVE (NEGATIVE); METHADONE SCREEN, URINE NEGATIVE (NEGATIVE); OPIATE SCREEN,URINE NEGATIVE (NEGATIVE)
[2022-01-19 22:00] LABS: PHENCYCLIDINE SCREEN,URINE NEGATIVE (NEGATIVE)
[2022-01-19] MEDS ORDERED: PALI9TAB15 PO (22:02)
[2022-01-19] MEDS ORDERED: CLON0.1T2 PO (22:02)
[2022-01-19] MEDS ORDERED: BUSP15 PO (22:02)
[2022-01-19 22:05] LABS: ALANINE AMINOTRANSFERASE 47 U/L (12-78); ALBUMIN 3.9 g/dL (3.4-5.0); ALKALINE PHOSPHATASE 62 U/L (46-116); ASPARTATE AMINOTRANSFERASE 28 U/L (15-37); BILIRUBIN,TOTAL 0.3 mg/dL (0.1-1.0); TOTAL PROTEIN, SERUM 8.2 g/dL (6.4-8.2)
[2022-01-19 22:21] LABS: COVID AG,FIA SOURCE NASOPHARYNGEAL
[2022-01-20 03:00] VITALS: BP 146/81
== END 2022-01-20 06:28 ==
LOC: EMS 20:12
DX: F25.0 Schizoaffective disorder, bipolar type (principal); Z20.822 Contact with and (suspected) exposure to COVID-19; E11.9 Type 2 diabetes mellitus without complications; F12.90 Cannabis use, unspecified, uncomplicated; F14.10 Cocaine abuse, uncomplicated; F17.210 Nicotine dependence, cigarettes, uncomplicated; J45.909 Unspecified asthma, uncomplicated; I10 Essential (primary) hypertension
CPT/HCPCS: 99285; 87426; 80053; 85025; 36415; 96372; 80307; G0480; J1200; J1630; J2060